=== PATIENT | male | born 1950 | race Caucasian/White ===

== ENCOUNTER 2020-02-23 06:16 | Day surgery (SDC) | payer MEDICARE, OTHER ==
[~2020-02-23] VITALS: Ht 182.9 cm; Wt 73.5 kg
[2020-02-23] MEDS ORDERED: ASPI-496 PO (07:04)
[2020-02-23] MEDS ORDERED: AMLO-150 PO (07:04)
[2020-02-23] MEDS ORDERED: PRED2.5T PO (07:04)
[2020-02-23] MEDS ORDERED: SODIUM CHLORIDE 0.9% 1,000 ML IV SCH (07:04)
[2020-02-23] MEDS ORDERED: CARV25TA12 PO (07:04)
[2020-02-23] MEDS ORDERED: TACR1CAP5 PO (07:04)
[2020-02-23] MEDS ORDERED: TACR0.5C4 PO (07:04)
[2020-02-23 07:27] VITALS: BP 179/77
[2020-02-23 07:42] LABS: INTERNATIONAL NORMALIZED RATIO 0.87 (0.93-1.1); PROTHROMBIN TIME 9.2 Seconds (9.6-11.5)
== END 2020-02-23 08:33 | disposition home or self-care (01) ==
LOC: OUT 06:16
PROVIDERS: ATTEND Internal Medicine Nephrology
DX: R80.8 Other proteinuria (principal); Z53.8 Procedure and treatment not carried out for other reasons; I12.9 Hypertensive chronic kidney disease with stage 1 through stage 4 chronic kidney disease, or unspecified chronic kidney disease; N18.3 Chronic kidney disease, stage 3 (moderate); Z94.0 Kidney transplant status; Z94.4 Liver transplant status; Z79.82 Long term (current) use of aspirin; Z79.899 Other long term (current) drug therapy
CPT/HCPCS: 36415; 85610

== ENCOUNTER 2020-04-10 06:06 | Day surgery (SDC) | payer MEDICARE, OTHER ==
[~2020-04-10] VITALS: Ht 182.9 cm; Wt 72.9 kg
[~2020-04-10 06:06] MED LIST: AMLO-150 PO; ASPI-496 PO; CARV25TA12 PO; PRED2.5T PO; TACR0.5C4 PO; TACR1CAP5 PO
[2020-04-10 06:56] VITALS: BP 131/74
[2020-04-10] MEDS ORDERED: SODIUM CHLORIDE 0.9% 1,000 ML IV SCH (07:00)
[2020-04-10] MEDS ORDERED: NEPHRO (07:33)
[2020-04-10 07:46] LABS: INTERNATIONAL NORMALIZED RATIO 0.95 (0.93-1.1); PROTHROMBIN TIME 9.8 Seconds (9.6-11.5)
[2020-04-10] MEDS ORDERED: NALOXONE 1 MG/ML, 2ML ONE (08:36)
[2020-04-10] MEDS ORDERED: FENTANYL PF 100 MCG/2ML ONE (08:36)
[2020-04-10] MEDS ORDERED: FLUMAZENIL 0.1 MG/1 ML, 5ML ONE (08:36)
[2020-04-10] MEDS ORDERED: MIDAZOLAM 1 MG/ML, 5ML ONE (08:36)
== END 2020-04-10 11:00 | disposition home or self-care (01) ==
LOC: OUT 06:06
PROVIDERS: ATTEND Internal Medicine Nephrology
DX: R80.8 Other proteinuria (principal); N17.0 Acute kidney failure with tubular necrosis; N28.1 Cyst of kidney, acquired; Z94.0 Kidney transplant status; Z94.4 Liver transplant status; Z79.82 Long term (current) use of aspirin; Z79.899 Other long term (current) drug therapy
CPT/HCPCS: 36415; 50200; 77012; 85610; 88300; 88305; 88313; 88342; 88346; 88348; 88350; 99156; 99157; J2250; J3010; J2310